=== PATIENT | male | born 1970 | race Caucasian/White ===

== ENCOUNTER 2024-12-16 08:48 | Emergency (ER) | payer OTHER ==
[~2024-12-16] VITALS: Ht 180.3 cm; Wt 106.3 kg
--- NOTE | 2024-12-16 09:21 | ED.PDOC ---
Musculoskeletal HPI Comments 54 year old male presents to the ED with chief complaint of right hand injury. Patient reports that while at work today at 6am, a large semi-truck tire had exploded next to his right hand, causing immediate injury to it with dislocation of his 5th finger. Patient relays that the pain and swelling to his right hand has worsened over time. Patient denies any numbness, weakness, open wound, or other injury at this time. Chief Complaint: Upper Extremity Time Seen by MD: 09:16 Reviewed Notes: Nurses Notes, Medications, Allergies Allergies: Coded Allergies: NO KNOWN ALLERGIES (Unverified , 12/16/24) Home Meds Active Scripts Ibuprofen Micronized (MOTRIN TABLET) 600 Mg Tb, 600 MG PO TID PRN for 5 Days, #15 TAB *Black box warning-NSAIDS can increase risk of SD & hypertension, GI irritation, ulceration, bleed, perferation. Do not use post cardiac surgery. Use short duration/lowest effective dose. Prov:MACARIO BENSON MD 12/16/24 Information Source: Patient Mode of Arrival: Ambulatory Location: Right Extremity Location: Hand Timing: Days Prehospital treatment: None Severity: Moderate Able to Move Extremity: Yes Pain: Moderate Mechanism: Blunt Trauma Circumstances: Work Related Onset of Symptoms: After Trauma Symptoms: Swelling, Pain DVT Risk Factors: NONE Last Tetanus: Unknown Past Medical History PAST MEDICAL HISTORY: Denies Surgical History: Denies all surgeries Family History Family History: Reviewed,noncontributory to illness Social History Smoker: Non-Smoker Alcohol: Denies ETOH Use Drugs: Denies Drug Use Lives In: Home Constitutional: denies: chills, diaphoresis, fatigue, fever, malaise, sweats, weakness, others EENTM: denies: blurred vision, double vision, ear bleeding, ear discharge, ear drainage, ear pain, ear ringing, eye pain, eye redness, hearing loss, mouth pain, mouth swelling, nasal discharge, nose bleeding, nose congestion, nose pain, photophobia, tearing, throat pain, throat swelling, voice changes, others Respiratory: denies: cough, hemoptysis, orthopnea, SOB at rest, shortness of breath, SOB with excertion, stridor, wheezing, others Cardiovascular: denies: chest pain, dizzy spells, diaphoresis, Dyspnea on exertion, edema, irregular heart beat, left arm pain, lightheadedness, palpitations, PND, syncope, others Gastrointestinal: denies: abdomen distended, abdominal pain, blood streaked bowels, constipated, diarrhea, dysphagia, difficulty swallowing, hematemesis, melena, nausea, poor appetite, poor fluid intake, rectal bleeding, rectal pain, vomiting, others Genitourinary: denies: burning, dysuria, flank pain, frequency, hematuria, incontinence, penile discharge, penile sore, pain, testicle pain, testicle swelling, urgency, others Neurological: denies: dizziness, fainting, headache, left sided numbness, left sided weakness, numbness, paresthesia, pre-existing deficit, right sided numbness, right sided weakness, seizure, speech problems, tingling, tremors, weakness, others Musculoskeletal: reports: others (Rt hand swelling, pain, and 5th finger dislocation); denies: back pain, gout, joint pain, joint swelling, muscle pain, muscle stiffness, neck pain Integumetry: denies: bruises, change in color, change in hair/nails, dryness, laceration, lesions, lumps, rash, wounds, others Allergic/Immunocompromised: denies: Difficulty Healing, Frequent Infections, Hives, Itching, others Hematologic/Lymphatic: denies: anemia, blood clots, easy bleeding, easy bruising, swollen glands, others Endocrine: denies: excessive hunger, excessive sweating, excessive thirst, excessive urination, flushing, intolerance to cold, intolerance to heat, unexplained weight gain, unexplained weight loss, others Psychiatric: denies: anxiety, bipolar disorder, depression, hopeless, panic disorder, schizophrenia, sleepless, suicidal, others All Other Systems: Reviewed and Negative Physical Exam General Appearance: Moderate Distress, Normal HEENT: Normal ENT Inspection, PERRL/EOMI Neck: Full Range of Motion, Non-Tender, Normal, Normal Inspection Respiratory: Chest Non-Tender, Lungs Clear, No Accessory Muscle Use, No Respiratory Distress, Normal Breath Sounds Cardiovascular: No Edema, No JVD, No Murmur, No Gallop, Normal Peripheral Pulses, Regular Rate/Rhythm Breast Exam: Deferred Gastrointestinal: No Organomegaly, Non Tender, No Pulsatile Mass, Normal Bowel Sounds, Soft Genitalia: Deferred Pelvic: Deferred Rectal: Deferred Extremities: No calf tenderness, Normal capillary refill, Non-tender, No pedal edema, Swelling (Right hand with right 5th finger deformed), Other (Deformed right 5th finger) Musculoskeletal : Apperance: Normal Neurologic: Alert, counter person II-XII nml as Tested, No Motor Deficits, Normal Affect, Normal Mood, No Sensory Deficits Cerebellar Function: Normal Reflexes: Normal Skin: Dry, Normal Color, Warm Peripheral Pulses: 3+ Radial (R), 3+ Radial (L) Lymphatic: No Adenopathy Was a procedure done? Was a procedure done?: Yes Sedation Sedation?: No Reduction Indication: Dislocation Sedation: Attempted Reduction Post-reduction x-ray show: Reduction, Good Alignment Informed consent obtained: Yes Risks/benefits/alt described: Yes Notes Deformed right 5th finger reduced in triage. No sedation or medication required. X-Rays ordered. Differential Diagnosis EXT Differential Diagnosis: Fracture, Dislocation, Contusion X-Ray, Labs, Meds, VS Vital Signs Date Time Temp Pulse Resp B/P (MAP) Pulse Ox O2 Delivery O2 Flow Rate FiO2 12/16/24 12:00 98.0 74 18 156/62 (93) 99 98.0 12/16/24 11:59 Room Air* 0 21 12/16/24 09:02 98.2 96 20 166/107 (126) 97 Current Medications Medications (Trade) Dose Ordered Sig/Anita Route Start Time Stop Time Status Last Admin Ketorolac Tromethamine (Toradol Injection) 60 mg ONCE ONCE IM 12/16/24 10:15 12/16/24 10:16 DC 12/16/24 10:38 Patient alert. Right hand swollen with right 5th finger deformed. Good pulses. Vitals stable. On examination there is swelling of the hand along with dislocation of the right 5th finger which was placed back in place on examination. Was able to feel the slide of the joint. Patient feeling much better after alignment. Blood pressure elevated from possible pain. Was given prescription of Motrin. X-ray does show multiple fractures of the hand. Old on new. Placed a splint. Has good pulses. Was told to follow up with orthopedic surgeon. Explained to the patient. Continue to monitor. He does not want to be transferred. He states that he will do follow up. Was told to follow up with his primary care physician. Was told to come back if there is any problem. Rt Hand XR: FINDINGS/IMPRESSION: : 1. Minimally displaced and comminuted spiral fracture of the right 5th finger diaphysis.. 2. Acute appearing fractures of the lateral margin of the right thumb distal phalangeal tuft and right thumb distal phalanx base, with intra-articular extension. 3. Tiny calcification radial to the 1st metacarpal head may be due to acute or chronic ligament injury. 4. Possible old healed fracture of the 5th metacarpal bone. 5. Possible old fracture of the right radial styloid. 6. 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 Time of 1ST Reevaluation: 10:16 Reevaluation 1ST: Improved Patient Education/Counseling: Diagnosis, Treatment Family Education/Counseling: No Family Present Additional Information Previous visit documents reviewed: None The following tests were ordered, and results were reviewed by me: Rt Hand XR Additional Information was gathered from interviewing the following independent historians: None I reviewed and agreed with the following test results read by other providers: Rt Hand XR I discussed treatment and results with medical personnel. Departure 1 Departure Time of Disposition: 09:28 Impression: Primary Impression: Dislocation of right little finger Qualified Codes: S63.256A - Unspecified dislocation of right little finger, initial encounter Additional Impressions: Fracture of hand Qualified Codes: S62.91XA - Unspecified fracture of right wrist and hand, initial encounter for closed fracture Distal radial fracture Qualified Codes: S52.531A - Colles' fracture of right radius, initial encounter for closed fracture Disposition: 02 SHORT TERM HOSPITAL Admit to: Med Surg Condition: Guarded e-Prescriptions Ibuprofen Micronized (MOTRIN TABLET) 600 Mg Tb 600 MG PO TID PRN for 5 Days, #15 TAB *Black box warning-NSAIDS can increase risk of SD & hypertension, GI irritation, ulceration, bleed, perferation. Do not use post cardiac surgery. Use short duration/lowest effective dose. Prov: MACARIO BENSON MD 12/16/24 Critical Care Note Critical Care Time?: No Stability Stability form required: No Heart Score Heart Score: Heart Score Response (Comments) Value History N/A 0 EKG N/A 0 Age N/A 0 Risk Factors N/A 0 Troponin N/A 0 Total 0 I personally scribed for MACARIO BENSON MD ([email or web address]) on 12/16/24 at 09:21. Electronically submitted by Beck [address] ([email or web address]). I personally scribed for MACARIO BENSON MD ([email or web address]) on 12/16/24 at 11:15. Electronically submitted by Beck [address] ([email or web address]). MACARIO BENSON MD Dec 16, 2024 09:21
[2024-12-16] MEDS ORDERED: IBU600T PO (09:29)
--- NOTE | 2024-12-16 09:45 | DVH ---
CLINICAL INDICATION: fracture TECHNIQUE: XY R HAND 3 VIEW XRAY Comparison: None FINDINGS/IMPRESSION: : 1. Minimally displaced and comminuted spiral fracture of the right 5th finger diaphysis.. 2. Acute appearing fractures of the lateral margin of the right thumb distal phalangeal tuft and righ t thumb distal phalanx base, with intra-articular extension. 3. Tiny calcification radial to the 1st metacarpal head may be due to acute or chronic ligament injur y. 4. Possible old healed fracture of the 5th metacarpal bone. 5. Possible old fracture of the right radial styloid. 6. 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
[2024-12-16] MEDS: KETOROLAC TROMETH 60MG/2ML VIAL IM ONE (10:38)
[2024-12-16 12:00] VITALS: BP 156/62; PULSE 74; RESP 18; TEMP 98; O2SAT 99
== END 2024-12-16 16:09 | disposition left against medical advice (07) ==
LOC: ER 08:48
DX: S63.256A Unspecified dislocation of right little finger, initial encounter (principal); S62.636A Displaced fracture of distal phalanx of right little finger, initial encounter for closed fracture; X58.XXXA Exposure to other specified factors, initial encounter; Y93.89 Activity, other specified; Y92.89 Other specified places as the place of occurrence of the external cause; Y99.0 Civilian activity done for income or pay
CPT/HCPCS: 26755; 73130; 96372; 99284; J1885